=== PATIENT | male | born 1995 | race Caucasian/White ===

== ENCOUNTER → 2024-08-09 10:41 | Outpatient (BNVA) | payer SELFPAY | PROVIDERS: Family Provider Pediatrics Adolescent Medicine; PCP Family Medicine; Visit Provider Family Medicine | DX: Z51.81 Encounter for therapeutic drug level monitoring (principal); Z13.1 Encounter for screening for diabetes mellitus; Z13.220 Encounter for screening for lipoid disorders | CPT/HCPCS: 80053; 80061; 83036; 85025 ==

== ENCOUNTER 2025-08-14 11:07 | Outpatient (CLI) | payer OTHER, SELFPAY ==
[2025-08-14] MEDS: iohexol 350 mg/mL 500 mL Btl (per mL) IV (11:25)
--- NOTE | 2025-08-14 12:00 | CT_ITS ---
WS: [id number] CT ABDOMEN PELVIS TECHNIQUE: Contrast-enhanced CT of the abdomen and pelvis with coronal and sagittal reformatted images. CLINICAL INFORMATION: RLQ pain PA Not Required [id number] COMPARISON: None. DLP: 691.[address] scans at [facility] use at least one of these dose optimization techniques: automated exposure control; mA and/or kV adjustment per patient size (includes targeted exams where dose is matched to clinical indication); or iterative reconstruction. FINDINGS: Inflammatory stranding and edema about the sigmoid colon in the pelvis compatible with acute diverticulitis. A few sigmoid diverticuli. No drainable abscess or drainable fluid collection. Recommend follow-up to resolution. Normal appendix. Fatty liver. Normal spleen. Lung bases are well aerated. Normal GE junction. Normal gallbladder. Normal portal vein and splenic vein. Normal pancreas. Adrenal glands are normal. Normal renal parenchymal enhancement. No hydronephrosis. Pelvic phleboliths. Normal caliber abdominal aorta. Tiny fat-containing umbilical hernia. CT/CT abdomen pelvis w con* [id number] IMPRESSION: 1. Inflammatory stranding and edema about the sigmoid colon in the pelvis comp atible with acute diverticulitis. 2. No drainable abscess or drainable fluid collection. Recommend follow-up to resolution. 3. Normal appendix. Notified Bud Whitney MD at 08/14/2025 11:41 AM.
== END 2025-08-14 11:08 | disposition home or self-care (01) ==
LOC: RAD 11:09
PROVIDERS: PCP Family Medicine; Visit Provider Family Medicine
DX: R10.31 Right lower quadrant pain (principal); R19.09 Other intra-abdominal and pelvic swelling, mass and lump; K76.0 Fatty (change of) liver, not elsewhere classified
CPT/HCPCS: 74177